=== PATIENT | female | born 1975 | race African-American/Black ===

== ENCOUNTER 2019-02-06 09:28 | Emergency (ER) | payer OTHER ==
[~2019-02-06] VITALS: Ht 160 cm; Wt 62.6 kg
[2019-02-06 09:40] VITALS: BP 108/64
[2019-02-06] MEDS ORDERED: HYDROcodone/APAP 10/325 MG 1 TAB TAB PO ONE (10:05)
[2019-02-06 10:54] VITALS: BP 111/65
== END 2019-02-06 10:55 | disposition home or self-care (01) ==
LOC: MED 09:28
DX: M06.861 Other specified rheumatoid arthritis, right knee (principal)
CPT/HCPCS: 99283

== ENCOUNTER 2019-02-12 15:28 | Emergency (ER) | payer OTHER ==
[~2019-02-12] VITALS: Ht 160 cm; Wt 62.6 kg
[2019-02-12 15:35] VITALS: BP 107/62
--- NOTE | 2019-02-12 15:41 | NUR ---
C/O R KNEE PAIN 02/28 FROM RHEUMATOID ARTHRITIS. +CMS. ALSO STATES GETTING OVER COLD SYMPTOMS. +PRODUCTIVE COUGH. INFLAMMED LARYNGEAL. VSS. [id number]. BED IS DOWN, LOCKED, BED RAIL X 1, ERMD TO SEE PT. REQUESTING REFILL FOR NORCO AND GABAPENTIN RX- NORCO, GABAPENTIN, PREDNISONE, ??
--- NOTE | 2019-02-12 15:57 | NUR ---
EMILE TINOCO AT [facility] Addendum: 02/12/19 at 1622 by [email or web address] AT CHAIR
[2019-02-12] MEDS ORDERED: HYDROcodone/APAP 5/325 MG 1 TAB TAB PO ONE (16:05)
[2019-02-12] MEDS ORDERED: DEXAMETHASONE 10 MG/ML VIAL IM ONE (16:05)
--- NOTE | 2019-02-12 16:15 | NUR ---
MEDICATIONS ADMINISTERED ORDERED. PT TOLERATED WELL
[2019-02-12 16:25] VITALS: BP 105/59
--- NOTE | 2019-02-12 16:25 | NUR ---
Patient discharged with v/s stable. Written and verbal after care instructions given and explained. Patient alert, oriented and verbalized understanding of instructions. Ambulatory with steady gait. All questions addressed prior to discharge. ID band removed. Patient advised to follow up with PMD. Rx of GABAPENTIN AND NAPROXEN given. Patient educated on indication of medication including possible reaction and side effects. Opportunity to ask questions provided and answered.
== END 2019-02-12 16:25 | disposition home or self-care (01) ==
LOC: MED 15:28
DX: M06.9 Rheumatoid arthritis, unspecified (principal); Z76.0 Encounter for issue of repeat prescription
CPT/HCPCS: 96372; 99283; J1100

== ENCOUNTER 2019-04-19 12:32 | Emergency (ER) | payer OTHER ==
[~2019-04-19] VITALS: Ht 160 cm; Wt 63.5 kg
[2019-04-19 12:45] VITALS: BP 114/69
--- NOTE | 2019-04-19 12:50 | NUR ---
PT TRIAGED, SENT BACK TO [facility]
--- NOTE | 2019-04-19 12:58 | NUR ---
44/F BIB SELF C/O EXACERBATION OF CHRONIC BL KNEE PAIN, X2 DAYS. DENIES TRAUMA/INJURY. HX STAGE 3 RHEUMATOID ARTHRITIS, ANEMIA, LATERAL RELEASE OF L KNEE (2008). PATIENT STATES PAIN OF 9/10 AT THIS TIME. PATIENT POSITIONED FOR COMFORT; HOB ELEVATED; BEDRAILS UP X1; BED DOWN. ER MD MADE AWARE OF PT STATUS.
[2019-04-19] MEDS ORDERED: HYDROcodone/APAP 7.5/325 MG 1 TAB PO ONE (15:20)
[2019-04-19] MEDS ORDERED: ONDANSETRON 4 MG ODT PO ONE (15:20)
[2019-04-19 15:54] VITALS: BP 118/72
== END 2019-04-19 15:54 | disposition home or self-care (01) ==
LOC: MED 12:32
DX: M25.562 Pain in left knee (principal); M25.561 Pain in right knee; Z76.0 Encounter for issue of repeat prescription
CPT/HCPCS: 99283; Q0162

== ENCOUNTER 2019-07-12 10:15 | Emergency (ER) | payer OTHER ==
[~2019-07-12] VITALS: Ht 162.6 cm; Wt 69.6 kg
[2019-07-12 10:35] VITALS: BP 115/73
--- NOTE | 2019-07-12 10:40 | NUR ---
PT GOING TO CT VIA [facility] WITH RN AND ON MONITOR
--- NOTE | 2019-07-12 10:42 | NUR ---
INFORMED DR. RESENDEZ OF L SIDED WEAKNESS, FACIAL DROOP AND CVA HISTORY.
--- NOTE | 2019-07-12 10:44 | NUR ---
DR. RESENDEZ EVALUATING PT AT BEDSIDE
--- NOTE | 2019-07-12 10:45 | NUR ---
accompanied pt to CT scan; VSS
--- NOTE | 2019-07-12 10:50 | NUR ---
PT BACK IN BED [address] SCAN; VSS
--- NOTE | 2019-07-12 11:02 | NUR ---
C/O L ARM NUMBNESS STARTING APPROX. 0930 AM. PT ALSO NOTED TO HAVE L SIDED FACIAL DROOP, & LLE WEAKNESS. PT AMBULATORY BUT WITH ATAXIC GAIT PER ELECTRIC MOTOR TESTER (UNSTEADY WITH R SIDED DRIFT). NO SLURRED SPEECH NOTED, PT A & O X4. PT REPORTS HX OF CVA IN AUGUST 2018. STATES BLURRY VISION TO LEFT EYE. NO SENSATION TO LEFT ARM. DECREASED SENSATION TO LEFT LEG. NO MOVEMENT NOTED TO LEFT ARM. SOME EFFORT AGAINST GRAVITY NOTED TO LEFT LEG. STATES MODERATE PAIN, CHRONIC TO BL KNEE (HX RA). HX: CVA, RA, LUPUS RX: UNOBTAINABLE
--- NOTE | 2019-07-12 11:02 | NUR ---
BRUISING NOTED TO BL ANTECUBITAL/UPPER ARM--PT STATES IT IS FROM IV STICKS FROM PREVIOUS MEDICAL VISITS.
--- NOTE | 2019-07-12 11:07 | NUR ---
DR. RESENDEZ @ BEDSIDE
--- NOTE | 2019-07-12 11:13 | NUR ---
PT STATES HEADACHE PAIN. DR. RESENDEZ @ BEDSIDE.
--- NOTE | 2019-07-12 11:31 | NUR ---
NUTRITION TEACHER @ BEDSIDE
--- NOTE | 2019-07-12 11:35 | NUR ---
Caroline maynard in [facility] - 07/12/19 at 1138 by CRISTA EMT @ BEDSIDE FOR MELANI
--- NOTE | 2019-07-12 11:40 | NUR ---
EMT @ BEDSIDE FOR EKG
[2019-07-12 11:50] LABS: BASOPHILS % (AUTO) 0.5 % (0.0-2.0); EOSINOPHILS # (AUTO) 0.1 K/uL (0-0.4); EOSINOPHILS % (AUTO) 0.9 % (0.0-4.0); HEMATOCRIT 37.2 % (36-48); HEMOGLOBIN 12.1 g/dL (12.0-16.0); LYMPHOCYTES # (AUTO) 1.5 K/uL (2.5-16.5); LYMPHOCYTES % (AUTO) 18.7 % (20.5-51.1); MEAN CORPUSCULAR HEMOGLOBIN 29 pg (27-31); MEAN CORPUSCULAR HGB CONC 33 g/dL (33-37); MONOCYTES # (AUTO) 0.4 K/uL (0.8-1.0); MONOCYTES % (AUTO) 5.2 % (1.7-9.3); NEUTROPHILS # (AUTO) 5.9 K/uL (1.8-7.7); NEUTROPHILS % (AUTO) 74.7 % (42.2-75.2); PLATELET COUNT (AUTO) 284 K/uL (140-450); RED BLOOD CELL COUNT(AUTO) 4.22 MIL/uL (4.20-5.40); RED CELL DISTRIBUTION WIDTH 15.1 % (11.6-13.7); WHITE BLOOD COUNT (AUTO) 7.9 K/uL (4.8-10.8)
[2019-07-12 12:09] LABS: PROTHROMBIN TIME 10.1 secs (10.8-13.4)
[2019-07-12 12:23] LABS: ALBUMIN 3.9 g/dL (3.4-5.0); ANION GAP 11.6 (8-16); CARBON DIOXIDE 27.4 mmol/L (21-32); CREATININE 0.6 mg/dL (0.6-1.3); TOTAL BILIRUBIN 0.2 mg/dL (0.0-1.0)
--- NOTE | 2019-07-12 12:40 | NUR ---
NOTIFIED DR RESENDEZ THAT PT IS ASKING FOR PAIN MED FOR HEADACHE AND BL KNEE PAIN.
[2019-07-12 12:41] LABS: APPEARANCE,URINE CLEAR (CLEAR); BILIRUBIN,URINE NEGATIVE (NEGATIVE); BLOOD, URINE NEGATIVE (NEGATIVE); COLOR,URINE YELLOW (YELLOW); LEUKOCYTE ESTERASE ,URINE NEGATIVE (NEGATIVE); NITRITE, URINE NEGATIVE (NEGATIVE); PH,URINE 5.5 (5.0-9.0); UGLUCOSE NEGATIVE (NEGATIVE)
[2019-07-12] MEDS ORDERED: KETOROLAC 15 MG/ML VIAL IVP ONE (12:45)
[2019-07-12 12:51] LABS: BARBITURATE, URINE NEG. ng/ml (NEG <=200); CANNABINOID, URINE NEG. ng/mL (NEG <=50); COCAINE, URINE NEG. ng/mL (NEG <=300); OPIATE, URINE NEG. ng/mL (NEG <=2000); PHENCYCLIDINE SCREEN,URINE NEG. ng/mL (NEG <=25)
--- NOTE | 2019-07-12 12:51 | NUR ---
DR RESENDEZ @ BEDSIDE
[2019-07-12 12:59] LABS: BENZODIAZEPINE, URINE NEG ng/mL (NEG <=200)
--- NOTE | 2019-07-12 13:02 | NUR ---
REPORT TO JOCELYNN GARCIA. TRANSFER OF CARE AT THIS TIME.
--- NOTE | 2019-07-12 13:30 | NUR ---
PT RESTING IN BED, PAIN RATED 9/10 IN BILAT KNEES AND HEADACHE. ERMD NOTIFIED
[2019-07-12] MEDS ORDERED: GABAPENTIN 300 MG CAP PO ONE (14:00)
[2019-07-12] MEDS ORDERED: traMADol 50 MG TAB PO ONE (14:00)
--- NOTE | 2019-07-12 14:13 | NUR ---
REQUESTED NEURO CONSULT
--- NOTE | 2019-07-12 14:20 | NUR ---
NEURO CONSULT TAKING PLACE AT BEDSIDE VIA [facility]
--- NOTE | 2019-07-12 14:21 | NUR ---
ERMD AT BEDSIDE
--- NOTE | 2019-07-12 14:34 | NUR ---
INSTRUCTED/ASSISTED PT TO EDGE OF BED, PT ABLE TO STAND UP WITH NO ASSISTANCE, ASSISTANCE REQUIRED TO TAKE STEPS FORWARD. PT REPORTS PAIN IN HER KNEES WHEN STANDING UP
--- NOTE | 2019-07-12 14:45 | NUR ---
1415----CALLED [facility]. SPOKE WITH MAYURI
--- NOTE | 2019-07-12 14:50 | NUR ---
1189---- DR. RESENDEZ ON THE PHONE WITH [facility]
--- NOTE | 2019-07-12 15:05 | NUR ---
2848-----CALL BACK FROM [facility] REGARDING PT TRANSFER. TO DR BYNUM
--- NOTE | 2019-07-12 15:50 | NUR ---
PATIENT STATES THAT PAIN IS NOT RESOLVED, HEAD PAIN IS 9/10. ERMD NOTIFIED
--- NOTE | 2019-07-12 16:09 | NUR ---
PT TRANSPORTED TO CT VIA [facility]
--- NOTE | 2019-07-12 16:46 | NUR ---
8313----CALLED [facility] TO CONFIRM TRANSFER. DR WILL CALL BACK IN 5 MIN
--- NOTE | 2019-07-12 17:00 | NUR ---
PT UNABLE TO AMBULATE TO BATHROOM, PLACED ON BEDPAN TO URINATE. WIPES LEFT WITH PT.
[2019-07-12] MEDS ORDERED: oxyCODONE/APAP 5/325 MG 1 TAB TAB PO ONE (17:40)
--- NOTE | 2019-07-12 17:49 | NUR ---
2589------CALLED [facility] FOR TRANSFER FROM [facility] TO [facility]. [facility] WILL TRANSFER PT BY ALS FOR CARDIAC MONITORING. ETA 90 MINUTES
--- NOTE | 2019-07-12 18:21 | NUR ---
REPORT CALLED TO SAMUEL CARR RN.
--- NOTE | 2019-07-12 18:31 | NUR ---
1831---------TRANSFER CENTER CALLED BACK FOR AN UPDATE ON [facility] ETA/TO CONFIRM TRANSPORT
--- NOTE | 2019-07-12 19:00 | NUR ---
PT AWARE OF PENDING TRANSFER; WAITING FOR [facility] FOR TRANSFER
--- NOTE | 2019-07-12 20:00 | NUR ---
PT'S TRANSFER PUSHED BACK BY [facility] UNAVAILABLE UNITS---PT NOTIFIED. WILL CONTINUE TO MONITOR FOR ANY CHANGES; PT REMAINS AWAKE ALERT SITTING UP IN [facility]
--- NOTE | 2019-07-13 | NUR ---
[facility] SPOKE WITH CHARGE CHU GARCIA---UPDATE REPORT GIVEN [facility] AT BEDSIDE NOW TO TRANSPORT
[2019-07-13 00:01] VITALS: BP 110/74
--- NOTE | 2019-07-13 00:02 | NUR ---
Patient to be transferred to [facility]. Is being transferred due to . Receiving facility has accepting physician and available space. ER physician has signed transfer form. Patient or responsible republican has agreed to transfer and signed form. Patient belongings inventoried and will be sent with patient. Copy of nursing notes, lab reports, EKG, Physicians Orders and X-rays to be sent with patient. Report called to at receiving facility. ambulance service has been called for transfer. ETA is .
== END 2019-07-13 00:02 | disposition short-term general hospital (02) ==
LOC: MED 10:15
DX: G43.109 Migraine with aura, not intractable, without status migrainosus (principal); Z86.79 Personal history of other diseases of the circulatory system
CPT/HCPCS: 36415; 70450; 70496; 71045; 80053; 80305; 81003; 81025; 84484; 85025; 85610; 85730; 93005; 96374; 99285; C1758; J1885; Q0092; Q9967

== ENCOUNTER 2019-12-27 09:02 | Emergency (ER) | payer OTHER ==
[~2019-12-27] VITALS: Ht 160 cm; Wt 62.7 kg
[2019-12-27 09:08] VITALS: BP 110/70
--- NOTE | 2019-12-27 09:15 | NUR ---
PT PRESENTS WITH LEFT SIDED WEAKNESS, LEFT FACIAL DROOP NOTED, UNABLE TO MOVE TONGUE TO LEFT, PUPILS PERRLA. NO SLURRED SPEECH. PT UNEQUAL STRENGTH ON UPPER AND LOWER EXTREMITIES, UNABLE TO HOLD FOR 10 SECONDS LUE AND UNABLE TO HOLD 5 SECONDS LLE. UNEQUAL MANAGER HOUSEKEEPING ON UPPER EXTREMITIES. PT WITH H/A 9/10 PAIN, FRONTAL/TEMPORAL AREA. LUNGS CLEAR BL; HR EVEN AND REGULAR; PT DENIES ANY FEVER, CP, SOB, COUGH, OR N/V/D AT THIS TIME; VSS; PATIENT POSITIONED FOR COMFORT; HOB ELEVATED; BEDRAILS UP X2; BED DOWN. ER MD MADE AWARE OF PT STATUS. LWKT: 0830 HOURS TODAY ; 45 MINUTES AGO.
--- NOTE | 2019-12-27 09:19 | NUR ---
Patient transferred to bed 3 via wheelchair by triage nurse. RN evaluating the patient at bedside.
--- NOTE | 2019-12-27 09:22 | NUR ---
Called [facility].
--- NOTE | 2019-12-27 09:23 | NUR ---
ACCOMPANIED PT TO CT SCAN WITH ENROBING MACHINE CORDER.
[2019-12-27] MEDS ORDERED: PROCHLORPERAZINE 10 MG/2 ML VIAL IVP ONE ×2 (09:30→11:05)
[2019-12-27] MEDS ORDERED: NACL 0.9% 1,000 ML IV ONE (09:30)
[2019-12-27] MEDS ORDERED: KETOROLAC 30 MG/ML VIAL IVP ONE (09:30)
[2019-12-27] MEDS ORDERED: diphenhydrAMINE 50 MG/ML VIAL IVP ONE ×2 (09:30→11:05)
--- NOTE | 2019-12-27 09:46 | NUR ---
PROFESSOR OF MECHANICAL ENGINEERING AT BEDSIDE FOR BLOOD DRAW
[2019-12-27 09:53] LABS: BASOPHILS % (AUTO) 0.2 % (0.0-2.0); HEMATOCRIT 29.3 % (36-48); HEMOGLOBIN 9.2 g/dL (12.0-16.0); LYMPHOCYTES # (AUTO) 1.8 K/uL (2.5-16.5); MEAN CORPUSCULAR HEMOGLOBIN 28 pg (27-31); MEAN CORPUSCULAR HGB CONC 32 g/dL (33-37); MEAN CORPUSCULAR VOLUME 87.3 fL (80-94); MONOCYTES # (AUTO) 1.7 K/uL (0.8-1.0); MONOCYTES % (AUTO) 10.3 % (1.7-9.3); NEUTROPHILS # (AUTO) 12.8 K/uL (1.8-7.7); NEUTROPHILS % (AUTO) 78.5 % (42.2-75.2); PLATELET COUNT (AUTO) 304 K/uL (140-450); RED BLOOD CELL COUNT(AUTO) 3.36 MIL/uL (4.20-5.40); RED CELL DISTRIBUTION WIDTH 17.5 % (11.6-13.7); WHITE BLOOD COUNT (AUTO) 16.3 K/uL (4.8-10.8)
--- NOTE | 2019-12-27 10:19 | NUR ---
Note aleyda in ED - 12/27/19 at 1241 by PHSCMMCA Patient referred to the following facilities: [facility], [place], [place] [facility] [place] [facility] No openings at this time. Will followup.
[2019-12-27 10:25] LABS: ALBUMIN 3.2 g/dL (3.4-5.0); ANION GAP 9.5 (8-16); CARBON DIOXIDE 27.9 mmol/L (21-32); CREATININE 0.7 mg/dL (0.6-1.3); POTASSIUM 3.4 mmol/L (3.5-5.1); PROTHROMBIN TIME 10.4 secs (10.8-13.4); TOTAL BILIRUBIN 0.1 mg/dL (0.0-1.0)
[2019-12-27 11:27] VITALS: BP 108/68
--- NOTE | 2019-12-27 11:27 | NUR ---
Note aleyda in ED - 12/27/19 at 1129 by OTONIEL Patient discharged with v/s stable. Written and verbal after care instructions given and explained. Patient verbalized understanding. Ambulatory with steady gait. All questions addressed prior to discharge. Advised to follow up with PMD.
== END 2019-12-27 11:27 | disposition home or self-care (01) ==
LOC: MED 09:02
DX: G43.109 Migraine with aura, not intractable, without status migrainosus (principal)
CPT/HCPCS: 36415; 70450; 71045; 80053; 84484; 85025; 85610; 85730; 86886; 86900; 86901; 96361; 96374; 96375; 96376; 99285; J0780; J1200; J1885; J7030; Q0092

== ENCOUNTER 2020-01-07 09:23 | Emergency (ER) | payer OTHER ==
[~2020-01-07] VITALS: Ht 160 cm; Wt 65.8 kg
[2020-01-07 09:27] VITALS: BP 122/72
--- NOTE | 2020-01-07 09:33 | NUR ---
PATIENT AMBULATED TO BED 3.
--- NOTE | 2020-01-07 09:45 | NUR ---
DR CANTU AT BEDSIDE EVALUATING PT.
[2020-01-07] MEDS ORDERED: diphenhydrAMINE 50 MG/ML VIAL IVP ONE ×2 (09:55→10:45)
[2020-01-07] MEDS ORDERED: KETOROLAC 15 MG/ML VIAL IVP ONE ×2 (09:55→10:45)
[2020-01-07] MEDS ORDERED: PROCHLORPERAZINE 10 MG/2 ML VIAL IVP ONE ×2 (09:55→10:45)
--- NOTE | 2020-01-07 11:32 | NUR ---
PT COMFORTABLE IN BED SIDE RAILS UP X1 AND LOCK AT LOWEST POSITION.
--- NOTE | 2020-01-07 11:44 | NUR ---
DR CANTU AT BEDSIDE REEVALUATING PT.
[2020-01-07] MEDS ORDERED: BACITRACIN OINT 500 UNITS/GM PKT TP ONE (11:50)
--- NOTE | 2020-01-07 11:55 | NUR ---
gave bacitracin ointment ,pt in a hurry to catch her uber, instructed pt how to apply ointment.
[2020-01-07 11:59] VITALS: BP 122/72
--- NOTE | 2020-01-07 12:00 | NUR ---
Patient discharged with v/s stable. Written and verbal after care instructions given and explained regarding migraine headache. Patient alert, oriented and verbalized understanding of instructions. Ambulatory with steady gait. All questions addressed prior to discharge. ID band removed. Patient advised to follow up with PMD. Rx of bacitracin given. Patient educated on indication of medication including possible reaction and side effects. Opportunity to ask questions provided and answered.
== END 2020-01-07 12:00 | disposition home or self-care (01) ==
LOC: MED 09:23
DX: T21.02XA Burn of unspecified degree of abdominal wall, initial encounter (principal); G43.909 Migraine, unspecified, not intractable, without status migrainosus; Z86.73 Personal history of transient ischemic attack (TIA), and cerebral infarction without residual deficits; Z98.890 Other specified postprocedural states; X10.2XXA Contact with fats and cooking oils, initial encounter; Y93.89 Activity, other specified; Y92.89 Other specified places as the place of occurrence of the external cause; Y99.8 Other external cause status
CPT/HCPCS: 96374; 96375; 96376; 99284; J0780; J1200; J1885

== ENCOUNTER 2020-01-18 13:31 | Emergency (ER) | payer OTHER ==
[~2020-01-18] VITALS: Ht 160 cm; Wt 65.8 kg
[2020-01-18 13:34] VITALS: BP 115/83
--- NOTE | 2020-01-18 13:40 | NUR ---
Patient ambulated to bed 4. RN evaluating patient at bedside.
--- NOTE | 2020-01-18 13:41 | NUR ---
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 Pt unable to move left arm, severe weakness in left leg. Speech clear, able to speak in full sentences. No facial droop noted. 9/10 aching pain to head. States she has hx of complicated migraines in past. Awake and alert. positioned for comfort. VSS
--- NOTE | 2020-01-18 13:42 | NUR ---
Patient being evaluated by Dr. Mendosa at bedside.
[2020-01-18] MEDS ORDERED: NACL 0.9% 1,000 ML IV ONE (13:54)
[2020-01-18] MEDS ORDERED: diphenhydrAMINE 50 MG/ML VIAL IVP ONE (13:55)
[2020-01-18] MEDS ORDERED: PROCHLORPERAZINE 10 MG/2 ML VIAL IVP ONE (13:55)
[2020-01-18] MEDS ORDERED: KETOROLAC 30 MG/ML VIAL IVP ONE (13:55)
--- NOTE | 2020-01-18 14:26 | NUR ---
Pt ambulated to restroom with steady gait. Urine collected at this time
--- NOTE | 2020-01-18 14:44 | NUR ---
States decrease in pain, regained motor function in left extremities. VSS. Will continue to monitor
--- NOTE | 2020-01-18 14:49 | NUR ---
IV discontinued, 2x2 gauze placed to IV site.
[2020-01-18 14:50] VITALS: BP 118/79
--- NOTE | 2020-01-18 14:50 | NUR ---
Patient discharged with v/s stable. Written and verbal after care instructions given and explained. Patient alert, oriented and verbalized understanding of instructions. Ambulatory with steady gait. All questions addressed prior to discharge. ID band removed. Patient advised to follow up with PMD. Rx of Gabapentin 600mg given. Patient educated on indication of medication including possible reaction and side effects. Opportunity to ask questions provided and answered.
== END 2020-01-18 14:50 | disposition home or self-care (01) ==
LOC: MED 13:31
DX: G43.909 Migraine, unspecified, not intractable, without status migrainosus (principal); Z86.73 Personal history of transient ischemic attack (TIA), and cerebral infarction without residual deficits
CPT/HCPCS: 96361; 96374; 96375; 99284; J0780; J1200; J1885; J7030

== ENCOUNTER 2020-02-27 11:27 | Emergency (ER) | payer OTHER ==
[~2020-02-27] VITALS: Ht 160 cm; Wt 62.6 kg
[2020-02-27 11:29] VITALS: BP 109/61
[2020-02-27] MEDS ORDERED: PROCHLORPERAZINE 10 MG/2 ML VIAL IVP ONE (11:45)
[2020-02-27] MEDS ORDERED: NACL 0.9% 1,000 ML IV ONE ×2 (11:45→14:35)
[2020-02-27] MEDS ORDERED: diphenhydrAMINE 50 MG/ML VIAL IVP ONE (11:45)
[2020-02-27] MEDS ORDERED: KETOROLAC 30 MG/ML VIAL IM/IVP ONE ×2 (11:45→14:20)
[2020-02-27 15:03] VITALS: BP 114/69
== END 2020-02-27 15:04 | disposition home or self-care (01) ==
LOC: MED 11:27
DX: G89.29 Other chronic pain (principal); R51.9 Headache, unspecified; G43.909 Migraine, unspecified, not intractable, without status migrainosus; Z86.73 Personal history of transient ischemic attack (TIA), and cerebral infarction without residual deficits
CPT/HCPCS: 96361; 96374; 96375; 99284; J0780; J1200; J1885; J7030

== ENCOUNTER 2020-04-05 18:05 | Emergency (ER) | payer OTHER ==
[~2020-04-05] VITALS: Ht 162.6 cm; Wt 68.9 kg
[2020-04-05 18:10] VITALS: BP 119/67
[2020-04-05] MEDS ORDERED: diphenhydrAMINE 50 MG/ML VIAL IVP ONE ×2 (18:30→21:30)
[2020-04-05] MEDS ORDERED: KETOROLAC 30 MG/ML VIAL IVP ONE (18:30)
[2020-04-05] MEDS ORDERED: PROCHLORPERAZINE 10 MG/2 ML VIAL IVP ONE (18:30)
[2020-04-05] MEDS ORDERED: NACL 0.9% 1,000 ML IV ONE ×2 (18:30→21:30)
--- NOTE | 2020-04-05 18:51 | NUR ---
ACCOMPANIED PT TO CT SCAN YADI ALANIS.
--- NOTE | 2020-04-05 19:19 | NUR ---
REPORT RECEIVED FROM RADHA GARCIA FOR CONTINUATION OF CARE.
--- NOTE | 2020-04-05 19:19 | NUR ---
Pt report given to RADHA Freire. Transfer of care at this time.
--- NOTE | 2020-04-05 20:38 | NUR ---
PT STATES HER HEAD HURT 12/29 AT THIS TIME. ERMD MADE AWARE OF PT STATUS.
[2020-04-05] MEDS ORDERED: HYDROcodone/APAP 10/325 MG 1 TAB TAB PO ONE (20:50)
[2020-04-05] MEDS ORDERED: KETOROLAC 15 MG/ML VIAL IVP ONE (21:30)
--- NOTE | 2020-04-05 22:09 | NUR ---
pt states she is feeling much better , rates pain 3/10. Pt states she needs to be discharged at this time because her ride is already here and she doesn't want them to leave her.
--- NOTE | 2020-04-05 22:10 | NUR ---
IV removed, catheter intact and site benign. Applied folded 4x4 gauze and tape to stop bleeding.
[2020-04-05 22:12] VITALS: BP 111/76
--- NOTE | 2020-04-05 22:12 | NUR ---
Patient discharged with v/s stable. Written and verbal after care instructions given and explained. Patient verbalized understanding. Ambulatory with steady gait. All questions addressed prior to discharge. Advised to follow up with PMD.
== END 2020-04-05 22:12 | disposition home or self-care (01) ==
LOC: MED 18:05
DX: G43.909 Migraine, unspecified, not intractable, without status migrainosus (principal); Z86.73 Personal history of transient ischemic attack (TIA), and cerebral infarction without residual deficits
CPT/HCPCS: 70450; 96361; 96374; 96375; 96376; 99284; J0780; J1200; J1885; J7030

== ENCOUNTER 2020-05-01 18:35 | Emergency (ER) | payer OTHER ==
[~2020-05-01] VITALS: Ht 160 cm; Wt 69.4 kg
[2020-05-01 18:53] VITALS: BP 104/70
[2020-05-01] MEDS ORDERED: NACL 0.9% 1,000 ML IV ONE (19:05)
[2020-05-01] MEDS ORDERED: KETOROLAC 30 MG/ML VIAL IVP ONE (19:05)
[2020-05-01] MEDS ORDERED: diphenhydrAMINE 50 MG/ML VIAL IVP ONE ×2 (19:05→22:45)
[2020-05-01] MEDS ORDERED: PROCHLORPERAZINE 10 MG/2 ML VIAL IVP ONE (19:05)
[2020-05-01 19:47] LABS: BASOPHILS # (AUTO) 0.1 K/uL (0.00-0.22); BASOPHILS % (AUTO) 0.9 % (0.0-2.0); EOSINOPHILS # (AUTO) 0.2 K/uL (0-0.4); EOSINOPHILS % (AUTO) 3.4 % (0.0-4.0); HEMATOCRIT 30.5 % (36-48); HEMOGLOBIN 9.3 g/dL (12.0-16.0); LYMPHOCYTES # (AUTO) 1.4 K/uL (2.5-16.5); LYMPHOCYTES % (AUTO) 23.3 % (20.5-51.1); MEAN CORPUSCULAR HEMOGLOBIN 24 pg (27-31); MEAN CORPUSCULAR HGB CONC 31 g/dL (33-37); MEAN CORPUSCULAR VOLUME 78.4 fL (80-94); MONOCYTES # (AUTO) 0.5 K/uL (0.8-1.0); MONOCYTES % (AUTO) 8.7 % (1.7-9.3); NEUTROPHILS # (AUTO) 3.9 K/uL (1.8-7.7); NEUTROPHILS % (AUTO) 63.7 % (42.2-75.2); PLATELET COUNT (AUTO) 297 K/uL (140-450); RED BLOOD CELL COUNT(AUTO) 3.89 MIL/uL (4.20-5.40); RED CELL DISTRIBUTION WIDTH 20.3 % (11.6-13.7); WHITE BLOOD COUNT (AUTO) 6.2 K/uL (4.8-10.8)
[2020-05-01 19:53] LABS: CARBON DIOXIDE 23.3 mmol/L (21-32); CREATININE 0.8 mg/dL (0.6-1.3); POTASSIUM 4.3 mmol/L (3.5-5.1)
[2020-05-01 19:58] LABS: ALBUMIN 3.6 g/dL (3.4-5.0); TOTAL BILIRUBIN 0.1 mg/dL (0.0-1.0)
[2020-05-01] MEDS ORDERED: KETOROLAC 30 MG/ML VIAL ONE (20:28)
[2020-05-01] MEDS ORDERED: diphenhydrAMINE 50 MG/ML VIAL ONE (20:28)
[2020-05-01] MEDS ORDERED: PROCHLORPERAZINE 10 MG/2 ML VIAL ONE (20:28)
--- NOTE | 2020-05-01 21:00 | NUR ---
Dr. Little with patient for MSE.
[2020-05-01 23:23] VITALS: BP 105/72
--- NOTE | 2020-05-02 00:04 | NUR ---
Patient discharged with v/s stable. Written and verbal after care instructions given and explained. Patient alert, oriented and verbalized understanding of instructions. with . All questions addressed prior to discharge. ID band removed. Patient advised to follow up with PMD. Opportunity to ask questions provided and answered.
--- NOTE | 2020-05-02 03:38 | NUR ---
Note aleyda in EDM - 05/02/20 at 0339 by [facility] Patient discharged with v/s stable. Written and verbal after care instructions given and explained. Patient alert, oriented and verbalized understanding of instructions. with . All questions addressed prior to discharge. ID band removed. Patient advised to follow up with PMD. Opportunity to ask questions provided and answered.
== END 2020-05-02 00:09 | disposition home or self-care (01) ==
LOC: MED 18:35
DX: G43.409 Hemiplegic migraine, not intractable, without status migrainosus (principal); I63.9 Cerebral infarction, unspecified
CPT/HCPCS: 36415; 80048; 80076; 85025; 96361; 96374; 96375; 96376; 99284; J0780; J1200; J1885; J7030

== ENCOUNTER 2021-09-03 07:14 | Emergency (ER) | payer OTHER ==
[~2021-09-03] VITALS: Ht 160 cm; Wt 52.2 kg
[2021-09-03 07:19] VITALS: BP 115/67
--- NOTE | 2021-09-03 07:23 | NUR ---
PATIENT AMBULATED TO BED 4, STEADY GAIT
[2021-09-03] MEDS ORDERED: KETOROLAC 60 MG/2 ML VIAL IM ONE (07:25)
--- NOTE | 2021-09-03 07:27 | NUR ---
DR ALANIS AT BEDSIDE
[2021-09-03] MEDS ORDERED: TRAM50TA1 PO (07:35)
[2021-09-03] MEDS ORDERED: GABA300C PO (07:35)
[2021-09-03] MEDS ORDERED: GABA400C PO (07:39)
[2021-09-03 07:45] VITALS: BP 115/67
--- NOTE | 2021-09-03 07:45 | NUR ---
Patient discharged with v/s stable. Written and verbal after care instructions given and explained. Patient alert, oriented and verbalized understanding of instructions. Ambulatory with steady gait. All questions addressed prior to discharge. ID band removed. Patient advised to follow up with PMD. Rx of GABAPENTIN AND TRAMADOL given. Patient educated on indication of medication including possible reaction and side effects. Opportunity to ask questions provided and answered.
== END 2021-09-03 07:45 | disposition home or self-care (01) ==
LOC: MED 07:14
DX: G89.29 Other chronic pain (principal); M25.561 Pain in right knee; M25.562 Pain in left knee; Z86.73 Personal history of transient ischemic attack (TIA), and cerebral infarction without residual deficits; Z98.890 Other specified postprocedural states
CPT/HCPCS: 96372; 99283; J1885

== ENCOUNTER 2021-10-16 08:52 | Emergency (ER) | payer OTHER ==
[~2021-10-16] VITALS: Ht 157.5 cm; Wt 51.8 kg
[~2021-10-16 08:52] MED LIST: GABA400C PO; TRAM50TA1 PO
[2021-10-16 09:07] VITALS: BP 104/65
--- NOTE | 2021-10-16 09:12 | NUR ---
46Y FEMALE BIB SELF DUE TO L KNEE PAIN X4 DAYS. PT DENIES ANY TRAUMA AND STATED THE PAIN IS A FLARE-UP DUE TO HER RA. L KNEE SWOLLEN AT THIS TIME. PT STATED PAIN 8/10 AND ACHE LIKE PAIN. PMH: RA RAND
--- NOTE | 2021-10-16 09:56 | NUR ---
DR. ALANIS BEDSIDE EVALUATING PT
[2021-10-16] MEDS ORDERED: MORPHINE SULFATE 4 MG/ML SYR IM ONE (10:00)
[2021-10-16] MEDS ORDERED: ACET-8386 PO (10:14)
[2021-10-16] MEDS ORDERED: GABA400C PO (10:14)
--- NOTE | 2021-10-16 10:20 | NUR ---
Patient discharged with v/s stable. Written and verbal after care instructions given and explained. Patient alert, oriented and verbalized understanding of instructions. Ambulatory with steady gait. All questions addressed prior to discharge. ID band removed. Patient advised to follow up with PMD. Rx of norco, neurontin given. Patient educated on indication of medication including possible reaction and side effects. Opportunity to ask questions provided and answered.
[2021-10-16 10:26] VITALS: BP 110/68
== END 2021-10-16 10:20 | disposition home or self-care (01) ==
LOC: MED 08:52
DX: M25.561 Pain in right knee (principal); M25.562 Pain in left knee; M06.9 Rheumatoid arthritis, unspecified; Z98.890 Other specified postprocedural states; Z79.899 Other long term (current) drug therapy; Z79.891 Long term (current) use of opiate analgesic
CPT/HCPCS: 81002; 81025; 96372; 99283; J2270

== ENCOUNTER 2021-11-18 11:36 | Emergency (ER) | payer OTHER ==
[~2021-11-18] VITALS: Ht 160 cm; Wt 51.3 kg
[~2021-11-18 11:36] MED LIST changes: +ACET-8386 PO
[2021-11-18 11:52] VITALS: BP 115/77
[2021-11-18] MEDS ORDERED: KETOROLAC 60 MG/2 ML VIAL IM ONE (12:00)
--- NOTE | 2021-11-18 12:32 | NUR ---
46 Y/O FEMALE BIB SELF WITH C/O BILATERAL KNEE PAIN. PATIENT HAS SWELLING AND TENDERNESS TO BILATERAL KNEES. PATIENT HAS 8/10 PAIN LEVEL. MEDICAL HISTORY: RA AND ANEMIA NKDA
[2021-11-18] MEDS ORDERED: GABA400C PO (13:43)
[2021-11-18 13:55] VITALS: BP 111/76
--- NOTE | 2021-11-18 13:55 | NUR ---
Patient discharged with v/s stable. Written and verbal after care instructions given and explained. Patient alert, oriented and verbalized understanding of instructions. Ambulatory with steady gait. All questions addressed prior to discharge. ID band removed. Patient advised to follow up with PMD. Rx of GABAPENTIN given. Patient educated on indication of medication including possible reaction and side effects. Opportunity to ask questions provided and answered.
== END 2021-11-18 13:55 | disposition home or self-care (01) ==
LOC: MED 11:36
DX: G89.29 Other chronic pain (principal); M25.561 Pain in right knee; M25.562 Pain in left knee; Z76.0 Encounter for issue of repeat prescription; Z79.899 Other long term (current) drug therapy
CPT/HCPCS: 96372; 99283; J1885

== ENCOUNTER 2021-12-22 11:25 | Emergency (ER) | payer OTHER ==
[~2021-12-22] VITALS: Ht 160 cm; Wt 52.3 kg
[2021-12-22 11:40] VITALS: BP 105/63
--- NOTE | 2021-12-22 11:42 | NUR ---
PT SENT TO LOBBY TO WAIT.
[2021-12-22] MEDS ORDERED: GABA400C PO (12:28)
--- NOTE | 2021-12-22 12:42 | NUR ---
Patient discharged with v/s stable. Written and verbal after care instructions given and explained. Patient alert, oriented and verbalized understanding of instructions. Ambulatory with steady gait. All questions addressed prior to discharge. ID band removed. Patient advised to follow up with PMD. Rx of Gabapentin given. Patient educated on indication of medication including possible reaction and side effects. Opportunity to ask questions provided and answered.
--- NOTE | 2021-12-22 12:42 | NUR ---
NO NURSING INTERVENTIONS PERFORMED.
== END 2021-12-22 12:42 | disposition home or self-care (01) ==
LOC: MED 11:25
DX: G89.29 Other chronic pain (principal); M25.561 Pain in right knee; M25.562 Pain in left knee; Z76.0 Encounter for issue of repeat prescription; Z79.899 Other long term (current) drug therapy
CPT/HCPCS: 99283

== ENCOUNTER 2022-01-03 08:38 | Emergency (ER) | payer OTHER ==
[~2022-01-03] VITALS: Ht 160 cm; Wt 50.0 kg
[2022-01-03 09:01] VITALS: BP 103/67
--- NOTE | 2022-01-03 09:06 | NUR ---
Pt ambulated to chair A.
[2022-01-03] MEDS ORDERED: GABA400C PO (09:52)
--- NOTE | 2022-01-03 10:07 | NUR ---
46Y.O. F CAME IN TO CHANGE DOSE ON MEDS SHE HAS FOR HER RA IN HER KNEES, PT WAS TOLD TO COMEBACK IF HER PAIN GOT WORSE. PT IS 8/10 PAIN BECAUSE ITS THE MORNING ACCORDING TO HER. SHE HAS AN APPOINTMENT WITH PCP NEXT MONTH. A&OX4, SKIN INTACT, VITALS WNL AND STEADY GAIT. NKA HX: SLIGHT LEVELS OF LUPUS, ANEMIC, RA
[2022-01-03 10:08] VITALS: BP 103/67
--- NOTE | 2022-01-03 10:08 | NUR ---
Patient discharged with v/s stable. Written and verbal after care instructions given and explained. Patient alert, oriented and verbalized understanding of instructions. Ambulatory with steady gait. All questions addressed prior to discharge. ID band removed. Patient advised to follow up with PMD. Rx of Neurontin given. Patient educated on indication of medication including possible reaction and side effects. Opportunity to ask questions provided and answered.
== END 2022-01-03 10:08 | disposition home or self-care (01) ==
LOC: MED 08:38
DX: M06.9 Rheumatoid arthritis, unspecified (principal); Z76.0 Encounter for issue of repeat prescription
CPT/HCPCS: 99283

== ENCOUNTER 2022-02-05 11:44 | Emergency (ER) | payer OTHER ==
[~2022-02-05] VITALS: Ht 154.9 cm; Wt 61.2 kg
[2022-02-05 11:51] VITALS: BP 121/71
[2022-02-05] MEDS ORDERED: KETOROLAC 60 MG/2 ML VIAL IM ONE ×2 (11:55→11:58)
--- NOTE | 2022-02-05 12:00 | NUR ---
47 y/o female, pt presents to the ed with c/o bl knee pain, pt states she has chronic pain, but has a flare up this morning. states no relief with prednisone po at home. a&ox4, ambulates with steady gait. denies n/v/d, cough, chills, fever, sob, or cp. pmh: ra nka med: prednisone
--- NOTE | 2022-02-05 12:02 | NUR ---
pt requesting stronger pain medication, states torodol never works, ermd made aware
[2022-02-05] MEDS ORDERED: MORPHINE SULFATE 4 MG/ML SYR IM ONE (12:40)
[2022-02-05] MEDS ORDERED: GABA800T6 PO (12:44)
--- NOTE | 2022-02-05 12:58 | NUR ---
Patient discharged with v/s stable. Written and verbal after care instructions given and explained. Patient alert, oriented and verbalized understanding of instructions. Ambulatory with steady gait. All questions addressed prior to discharge. ID band removed. Patient advised to follow up with PMD. Rx of gabapentin given. Patient educated on indication of medication including possible reaction and side effects. Opportunity to ask questions provided and answered.
== END 2022-02-05 12:57 | disposition home or self-care (01) ==
LOC: MED 11:44
DX: M25.561 Pain in right knee (principal); M25.562 Pain in left knee; G89.29 Other chronic pain; Z79.899 Other long term (current) drug therapy
CPT/HCPCS: 96372; 99284; J1885; J2270

== ENCOUNTER 2022-03-10 09:55 | Emergency (ER) | payer OTHER ==
[~2022-03-10] VITALS: Ht 160 cm; Wt 53.5 kg
[~2022-03-10 09:55] MED LIST changes: +GABA800T6 PO
[2022-03-10 10:17] VITALS: BP 127/85
--- NOTE | 2022-03-10 10:25 | NUR ---
47/F C/O B/L KNEE PAIN ONSET 2 DAYS. PT STATES RA NOUT OF GABAPENTIN PX 4DAYS AGO. DENIES FALL OR INJURY. AMBULATORY, VITALS STABLE. AAO4 PMH: RA, LUPUS, ANEMIA
[2022-03-10] MEDS ORDERED: GABAPENTIN 300 MG CAP PO ONE ×2 (11:30→11:45)
--- NOTE | 2022-03-10 11:30 | NUR ---
PT STATES USUALLY TAKES GABAPENTIN 800MG PO. DR ALSTON NOTIFIED. PER MD VERBAL ORDER, ADMINISTER GABAPENTIN 800MG PO ONCE NOW
--- NOTE | 2022-03-10 11:44 | NUR ---
PER DR ALSTON VERBAL ORDER, CHANGE GABAPENTIN TO 600MG PO
[2022-03-10] MEDS ORDERED: GABA800T6 PO (12:16)
--- NOTE | 2022-03-10 12:30 | NUR ---
Patient discharged with v/s stable. Written and verbal after care instructions ABOUT CHRONIC KNEE PAIN given and explained. Patient alert, oriented and verbalized understanding of instructions. Ambulatory with steady gait. All questions addressed prior to discharge. ID band removed. Patient advised to follow up with PMD. Rx of GABAPENTIN given. Patient educated on indication of medication including possible reaction and side effects. Opportunity to ask questions provided and answered.
== END 2022-03-10 12:30 | disposition home or self-care (01) ==
LOC: MED 09:55
DX: M25.562 Pain in left knee (principal); M25.561 Pain in right knee
CPT/HCPCS: 81002; 81025; 99283

== ENCOUNTER 2022-05-01 09:41 | Emergency (ER) | payer OTHER ==
[~2022-05-01] VITALS: Ht 160 cm; Wt 52.6 kg
[~2022-05-01 09:41] MED LIST changes: +TRAM-748 PO; -TRAM50TA1 PO
[2022-05-01 09:47] VITALS: BP 120/74
--- NOTE | 2022-05-01 09:54 | NUR ---
PT AMB TO BED 7.
--- NOTE | 2022-05-01 10:15 | NUR ---
Dr. Stephens evaluating patient at bedside.
--- NOTE | 2022-05-01 10:17 | NUR ---
47 y/o female bib self with c/o knee and shoulder pain x 3 days. Per patient, she gets RA flare up "when she works too much." Per patient she takes Gabapentin for RA flare up. Denies trauma or injury. Medical History: RA, Lupus NKDA
[2022-05-01] MEDS ORDERED: MORPHINE SULFATE 4 MG/ML SYR IM ONE (10:20)
[2022-05-01] MEDS ORDERED: HYDR-5080 PO (10:35)
[2022-05-01] MEDS ORDERED: GABA400C PO (10:35)
[2022-05-01 11:00] VITALS: BP 100/60
--- NOTE | 2022-05-01 11:00 | NUR ---
Patient discharged with v/s stable. Written and verbal after care instructions given. Patient alert, oriented and verbalized understanding of instructions. Ambulatory with steady gait. All questions addressed prior to discharge. ID band removed. Patient advised to follow up with PMD. Rx of Gabapentin and Hydrocodone-Acetaminophen given. Opportunity to ask questions provided and answered.
--- NOTE | 2022-05-01 11:01 | NUR ---
The patient's care was reviewed and supervised by Katalina Osborn, RN, RN.
== END 2022-05-01 11:00 | disposition home or self-care (01) ==
LOC: MED 09:41
DX: M06.862 Other specified rheumatoid arthritis, left knee (principal); M06.861 Other specified rheumatoid arthritis, right knee; M06.812 Other specified rheumatoid arthritis, left shoulder; M06.811 Other specified rheumatoid arthritis, right shoulder
CPT/HCPCS: 81025; 96372; 99283; J2270

== ENCOUNTER 2022-06-21 16:48 | Emergency (ER) | payer OTHER ==
[~2022-06-21] VITALS: Ht 160 cm; Wt 52.6 kg
[~2022-06-21 16:48] MED LIST changes: -ACET-8386 PO; +ACET-8905 PO; +GABA300C PO; +HYDR-5080 PO
[2022-06-21 17:04] VITALS: BP 114/74
--- NOTE | 2022-06-21 17:11 | NUR ---
PT AMB TO BED 2.
[2022-06-21] MEDS ORDERED: HYDROcodone/APAP 5/325 MG 1 TAB TAB PO ONE (17:30)
[2022-06-21] MEDS ORDERED: TRAM-748 PO (17:33)
[2022-06-21] MEDS ORDERED: GABA400C PO (17:33)
[2022-06-21 18:02] VITALS: BP 114/74
--- NOTE | 2022-06-21 18:03 | NUR ---
PT LEFT WITHOUT DX PAPERWORK
== END 2022-06-21 18:02 | disposition home or self-care (01) ==
LOC: MED 16:48
DX: M06.862 Other specified rheumatoid arthritis, left knee (principal); M06.811 Other specified rheumatoid arthritis, right shoulder; Z76.0 Encounter for issue of repeat prescription; Z79.899 Other long term (current) drug therapy
CPT/HCPCS: 99281

== ENCOUNTER 2022-07-25 13:21 | Emergency (ER) | payer OTHER ==
[~2022-07-25] VITALS: Ht 160 cm; Wt 52.6 kg
[2022-07-25 13:33] VITALS: BP 116/64
--- NOTE | 2022-07-25 14:00 | NUR ---
CALLED NO RESPONSE
--- NOTE | 2022-07-25 14:15 | NUR ---
CALLED NO RESPONSE
--- NOTE | 2022-07-25 14:27 | NUR ---
PATIENT LEFT WITHOUT BEING SEEN BY DR. CANTU. NO FURTHER CARE PROVIDED FOR PATIENT.
== END 2022-07-25 14:00 | disposition left against medical advice (07) ==
LOC: MED 13:21
DX: M25.561 Pain in right knee (principal); M25.562 Pain in left knee; Z53.21 Procedure and treatment not carried out due to patient leaving prior to being seen by health care provider
CPT/HCPCS: 99281

== ENCOUNTER 2022-07-27 12:56 | Emergency (ER) | payer OTHER ==
[~2022-07-27] VITALS: Ht 162.6 cm; Wt 49.9 kg
[2022-07-27 13:06] VITALS: BP 113/54
[2022-07-27] MEDS ORDERED: HYDROcodone/APAP 5/325 MG 1 TAB TAB PO ONE (15:00)
[2022-07-27] MEDS ORDERED: GABA400C PO (15:11)
== END 2022-07-27 15:55 | disposition home or self-care (01) ==
LOC: MED 12:56
DX: M06.9 Rheumatoid arthritis, unspecified (principal); Z76.0 Encounter for issue of repeat prescription; Z79.899 Other long term (current) drug therapy; Z79.891 Long term (current) use of opiate analgesic
CPT/HCPCS: 99283

== ENCOUNTER 2022-09-17 18:15 | Emergency (ER) | payer OTHER ==
[~2022-09-17] VITALS: Ht 160 cm; Wt 56.2 kg
[2022-09-17 18:47] VITALS: BP 125/64
--- NOTE | 2022-09-17 18:56 | NUR ---
PT TO BED 08
--- NOTE | 2022-09-17 18:56 | NUR ---
Caroline maynard in [facility] - 09/17/22 at 1856 by MISAEL Patient ambulated to bed 8.
[2022-09-17] MEDS ORDERED: HYDROcodone/APAP 10/325 MG 1 TAB TAB PO ONE (19:00)
--- NOTE | 2022-09-17 19:00 | NUR ---
DR SUTTON AT BEDSIDE FOR EVAL
--- NOTE | 2022-09-17 19:00 | NUR ---
47 YO FEMALE BIBS PRESENT TO THE ER WITH KNEE PAIN. STATES ITS A FLARE UP OF RA. STATES 8/10 PAIN. ALSO C/O LEFT SHOULD OSTEOARTHRITIS PAIN. FLARE UP STARTED 2 DAYS AGO, BUT TODAY IS WORSE. PMH: ANEMIA ALLERGIES: AVACADO.
--- NOTE | 2022-09-17 19:09 | NUR ---
Patient being evaluated by physician at bedside.
[2022-09-17] MEDS ORDERED: GABA-640 PO (19:10)
== END 2022-09-17 19:21 | disposition home or self-care (01) ==
LOC: MED 18:15
DX: M06.861 Other specified rheumatoid arthritis, right knee (principal); M06.862 Other specified rheumatoid arthritis, left knee; M06.811 Other specified rheumatoid arthritis, right shoulder; M06.812 Other specified rheumatoid arthritis, left shoulder; M32.9 Systemic lupus erythematosus, unspecified; D64.9 Anemia, unspecified; Z79.899 Other long term (current) drug therapy
CPT/HCPCS: 99283

== ENCOUNTER 2022-10-17 01:05 | Emergency (ER) | payer OTHER ==
[~2022-10-17] VITALS: Ht 160 cm; Wt 54.9 kg
[~2022-10-17 01:05] MED LIST changes: +GABA-640 PO
[2022-10-17 01:16] VITALS: BP 101/69; PULSE 77; RESP 18; TEMP 98.9; O2SAT 98
--- NOTE | 2022-10-17 01:22 | NUR ---
INITIATED CODE BRAIN PER DR. GONZÁLES. RADIOLGY MADE AWARE
--- NOTE | 2022-10-17 01:22 | NUR ---
Dr. Gonsales examining patient.
--- NOTE | 2022-10-17 01:30 | NUR ---
Patient taken to CT scan with nurse.
[2022-10-17 02:06] LABS: BASOPHILS % (AUTO) 0.4 % (0.0-2.0); EOSINOPHILS % (AUTO) 0.1 % (0.0-4.0); HEMATOCRIT 36.5 % (36-48); HEMOGLOBIN 11.8 g/dL (12.0-16.0); LYMPHOCYTES # (AUTO) 0.3 K/uL (2.5-16.5); LYMPHOCYTES % (AUTO) 5.5 % (20.5-51.1); MEAN CORPUSCULAR HEMOGLOBIN 30 pg (27-31); MEAN CORPUSCULAR HGB CONC 32 g/dL (33-37); MEAN CORPUSCULAR VOLUME 92.9 fL (80-94); MONOCYTES % (AUTO) 0.4 % (1.7-9.3); NEUTROPHILS # (AUTO) 5.3 K/uL (1.8-7.7); NEUTROPHILS % (AUTO) 93.6 % (42.2-75.2); PLATELET COUNT (AUTO) 186 K/uL (140-450); RED BLOOD CELL COUNT(AUTO) 3.93 MIL/uL (4.20-5.40); WHITE BLOOD COUNT (AUTO) 5.6 K/uL (4.8-10.8)
--- NOTE | 2022-10-17 02:26 | NUR ---
TELENEURO INITIATED PER DR. GONZÁLES
[2022-10-17 02:30] LABS: ALBUMIN 3.7 g/dL (3.4-5.0); ANION GAP 11.6 (8-16); ASPARTATE AMINOTRANSFERASE 31 U/L (15-37); CARBON DIOXIDE 28.1 mmol/L (21-32); CHLORIDE 105 mmol/L (98-107); CREATININE 0.8 mg/dL (0.6-1.3); GFR ARICAN-AMERICAN 99 mL/min (>90); GLUCOSE 119 mg/dL (74-106); POTASSIUM 3.7 mmol/L (3.5-5.1); SODIUM SERUM 141 mmol/L (136-145); TOTAL BILIRUBIN 0.3 mg/dL (0.0-1.0); UREA NITROGEN, BLOOD 5 mg/dL (7-18)
[2022-10-17 02:34] LABS: PROTHROMBIN TIME 11.1 secs (10.8-13.4)
--- NOTE | 2022-10-17 02:38 | NUR ---
TELENEURO DOCTOR SPEAKING WITH PATIENT VIA REMOTE COMMUNICATION
--- NOTE | 2022-10-17 02:42 | NUR ---
DR. MIGNON WILKERSON, SPEAKING WITH DR. GONZÁLES
[2022-10-17] MEDS ORDERED: METOCLOPRAMIDE 10 MG/2 ML INJ VIAL IVP ONE (02:55)
[2022-10-17] MEDS ORDERED: methylPREDNISolone SS 125 MG/2 ML VIAL IVP ONE (02:55)
[2022-10-17] MEDS ORDERED: KETOROLAC 15 MG/ML VIAL IVP ONE (02:55)
[2022-10-17] MEDS ORDERED: diphenhydrAMINE 50 MG/ML VIAL IVP ONE ×2 (02:55→03:20)
[2022-10-17 04:00] VITALS: BP 101/69; PULSE 65; RESP 18; TEMP 98.9; O2SAT 100
--- NOTE | 2022-10-17 04:00 | NUR ---
Patient eloped with IV line, Dr. Gonsales made aware.
--- NOTE | 2022-10-17 04:10 | NUR ---
Kristopher GREER called patient chivo.
--- NOTE | 2022-10-17 04:20 | NUR ---
Pt bed cleaned and IV line noted on bed.
--- NOTE | 2022-10-17 04:30 | NUR ---
Officer Davie from [place] [employer] called who stated that they were unable to locate patient at this time.
== END 2022-10-17 04:00 | disposition left against medical advice (07) ==
LOC: MED 01:05
DX: R53.1 Weakness (principal); Z79.899 Other long term (current) drug therapy; Z86.73 Personal history of transient ischemic attack (TIA), and cerebral infarction without residual deficits
CPT/HCPCS: 36415; 70450; 70496; 71045; 80053; 84484; 85025; 85610; 85730; 86886; 86900; 86901; 93005; 96374; 96375; 99291; J1200; J1885; J2765; J2930; 99285

== ENCOUNTER 2022-11-12 10:21 | Inpatient (IN) | payer OTHER ==
[~2022-11-12] VITALS: Ht 160 cm; Wt 54.0 kg
[2022-11-12 10:25] VITALS: BP 111/51; PULSE 71; RESP 20; TEMP 97.6; O2SAT 98
[2022-11-12] MEDS ORDERED: NACL 0.9% 1,000 ML IV ONE ×3 (10:30→19:00)
[2022-11-12] MEDS ORDERED: MORPHINE SULFATE 4 MG/ML SYR IVP ONE (10:30)
[2022-11-12] MEDS ORDERED: ONDANSETRON 4 MG/2 ML VIAL IVP ONE (10:30)
--- NOTE | 2022-11-12 10:32 | NUR ---
CODE STROKE ACTIVATED.
--- NOTE | 2022-11-12 10:35 | NUR ---
PT TAKEN TO CT WITH NURSE WITH TECH
--- NOTE | 2022-11-12 10:43 | NUR ---
PT AMBULATED FROM HOME C/O LEFT SIDED WEAKNESS AND LOSS OF SENSATION ON THE LEFT SIDE, LEFT ARM NO EFFORT AGAINST GRAVITY, SLIGHT DRIFT NOTED ON THE LEFT LEG, PT IS ABLE TO AMBULATE WITH DIFFICULTY. PT A/OX4, GCS 15, VERBALLY RESPONSIVE. HX: LUPUS NKA
--- NOTE | 2022-11-12 10:44 | NUR ---
ATTEMPTED MULTIPLE ATTEMPTS WITH IV, NO SUCCESS
--- NOTE | 2022-11-12 10:45 | NUR ---
XRAY AT BEDSIDE
[2022-11-12 11:26] LABS: BASOPHILS # (AUTO) 0.1 K/uL (0.00-0.22); BASOPHILS % (AUTO) 1.5 % (0.0-2.0); EOSINOPHILS % (AUTO) 0.9 % (0.0-4.0); HEMATOCRIT 38.2 % (36-48); HEMOGLOBIN 12.3 g/dL (12.0-16.0); LYMPHOCYTES # (AUTO) 0.9 K/uL (2.5-16.5); LYMPHOCYTES % (AUTO) 18.5 % (20.5-51.1); MEAN CORPUSCULAR HEMOGLOBIN 30 pg (27-31); MEAN CORPUSCULAR HGB CONC 32 g/dL (33-37); MEAN CORPUSCULAR VOLUME 92.8 fL (80-94); MONOCYTES # (AUTO) 0.4 K/uL (0.8-1.0); MONOCYTES % (AUTO) 8.2 % (1.7-9.3); NEUTROPHILS # (AUTO) 3.4 K/uL (1.8-7.7); NEUTROPHILS % (AUTO) 70.9 % (42.2-75.2); PLATELET COUNT (AUTO) 197 K/uL (140-450); RED BLOOD CELL COUNT(AUTO) 4.12 MIL/uL (4.20-5.40); RED CELL DISTRIBUTION WIDTH 15.6 % (11.6-13.7); WHITE BLOOD COUNT (AUTO) 4.8 K/uL (4.8-10.8)
[2022-11-12 11:46] LABS: ALBUMIN 3.9 g/dL (3.4-5.0); ANION GAP 10.8 (8-16); ASPARTATE AMINOTRANSFERASE 31 U/L (15-37); CARBON DIOXIDE 25.6 mmol/L (21-32); CHLORIDE 107 mmol/L (98-107); CREATININE 0.6 mg/dL (0.6-1.3); GFR ARICAN-AMERICAN 138 mL/min (>90); GLUCOSE 85 mg/dL (74-106); POTASSIUM 4.4 mmol/L (3.5-5.1); SODIUM SERUM 139 mmol/L (136-145); TOTAL BILIRUBIN 0.3 mg/dL (0.0-1.0); UREA NITROGEN, BLOOD 3 mg/dL (7-18)
--- NOTE | 2022-11-12 11:47 | NUR ---
PAIN MEDS GIVEN ORDERED
[2022-11-12 12:08] LABS: PROTHROMBIN TIME 10.7 secs (10.8-13.4)
[2022-11-12 12:29] LABS: APPEARANCE,URINE CLEAR (CLEAR); BILIRUBIN,URINE NEGATIVE (NEGATIVE); BLOOD, URINE NEGATIVE (NEGATIVE); COLOR,URINE YELLOW (YELLOW); LEUKOCYTE ESTERASE ,URINE NEGATIVE (NEGATIVE); NITRITE, URINE NEGATIVE (NEGATIVE); PH,URINE 7.5 (5.0-9.0); UGLUCOSE NEGATIVE (NEGATIVE)
[2022-11-12] MEDS ORDERED: diphenhydrAMINE 50 MG/ML VIAL IVP ONE ×2 (13:05→15:00)
[2022-11-12] MEDS ORDERED: KETOROLAC 30 MG/ML VIAL IVP ONE ×2 (13:05→15:00)
[2022-11-12] MEDS ORDERED: METOCLOPRAMIDE 10 MG/2 ML INJ VIAL IVP ONE ×2 (13:05→15:00)
--- NOTE | 2022-11-12 15:06 | NUR ---
PT MEDICATED PER DOCTORS ORDERS
[2022-11-12] MEDS ORDERED: METH4TAB28 PO (18:54)
[2022-11-12] MEDS ORDERED: PRED50TA3 PO (18:54)
[2022-11-12] MEDS ORDERED: MEX2.5 (18:55)
--- NOTE | 2022-11-12 20:29 | NUR ---
Patient will be admitted to care of Shani DAY. Admited to Telemetry. Will go to room 105B. Belongings list completed. Report to Leonidas GARCIA.
[2022-11-12 20:40] VITALS: BP 116/55; PULSE 61; RESP 18; TEMP 97.6; O2SAT 97; O2SAT 99
--- NOTE | 2022-11-12 20:40 | NUR ---
PT TRANSPORTED VIA GURNEY FROM ER. PT IS AAOX4. SPEECH CLEAR. PT CAME IN WITH LEFT SIDED WEAKNESS AFTER EXPERIENCING MIGRAINES. PT STATE LAST TIME THIS HAPPEN WAS A YEAR AGO. PT HAS VISIBLE LEFT SIDED WEAKNESS ON LEFT ARM AND LEFT LOWER EXTREMITY. NO FACIAL DROOP. PT HAS IV ON RIGHT AC 20 GAUGE SALINE LOCK. EDUCATED PT DRAWER FITTER LIGHT SYSTEM. POC DISCUSSED. WILL CONTINUE TO MONITOR THE PT.
[2022-11-12 21:01] VITALS: PULSE 57
[2022-11-12] MEDS ORDERED: METOCLOPRAMIDE 10 MG/2 ML INJ VIAL IVP SCH (21:50)
[2022-11-12] MEDS ORDERED: KETOROLAC 30 MG/ML VIAL IVP SCH (21:50)
[2022-11-12] MEDS ORDERED: diphenhydrAMINE 50 MG/ML VIAL IVP SCH (21:50)
[2022-11-12] MEDS: GABAPENTIN 100 MG CAP PO PRN (22:24)
[2022-11-12] MEDS: HYDROcodone/APAP 5/325 MG 1 TAB TAB PO PRN (22:24)
[2022-11-13] VITALS: BP 101/59; PULSE 85; PULSE 88; RESP 18; TEMP 97.6; O2SAT 99
--- NOTE | 2022-11-13 02:15 | NUR ---
OBSERVED PT. PT IS RESTING ON BED. PT IS AWAKE NOT IN ANY DISTRESS. PT IS OKAY AND DOES NOT NEED ANYTHING AT THIS TIME. WILL CONTINUE TO MONITOR THE PT.
[2022-11-13 04:00] VITALS: BP 111/75; PULSE 67; PULSE 74; RESP 16; TEMP 97.8; O2SAT 98
[2022-11-13] MEDS: HYDROcodone/APAP 5/325 MG 1 TAB TAB PO PRN ×3 (04:24→18:02)
[2022-11-13] MEDS: GABAPENTIN 100 MG CAP PO PRN (06:30)
--- NOTE | 2022-11-13 07:17 | NUR ---
ENDORSED PT TO DAY SHIFT RN FOR CONTINUITY OF CARE. PT IS STABLE.
--- NOTE | 2022-11-13 07:41 | NUR ---
GOT REPORT FROM THE NIGHT NURSE, PT ASKING FOR MAGRAIN MED,NO SOB.[id number]
[2022-11-13 08:00] VITALS: BP 114/75; PULSE 72; PULSE 75; RESP 18; TEMP 98.2; O2SAT 100; O2SAT 99
[2022-11-13] MEDS ORDERED: METOCLOPRAMIDE 10 MG/2 ML INJ VIAL IVP PRN ×2 (08:10→15:00)
[2022-11-13] MEDS ORDERED: diphenhydrAMINE 50 MG/ML VIAL IVP SCH ×2 (08:30→15:00)
[2022-11-13] MEDS ORDERED: KETOROLAC 30 MG/ML VIAL IM SCH (08:31)
[2022-11-13] MEDS ORDERED: KETOROLAC 30 MG/ML VIAL IVP SCH ×2 (08:31→15:00)
[2022-11-13] MEDS ORDERED: GABAPENTIN 100 MG CAP PO PRN ×2 (08:59→15:00)
[2022-11-13] MEDS ORDERED: ASPIRIN 81 MG TAB.CHEW PO SCH (09:00)
[2022-11-13] MEDS ORDERED: ATORVASTATIN 80 MG TAB PO SCH (09:00)
--- NOTE | 2022-11-13 09:22 | NUR ---
BENADRYL IS GIVEN IVP ORDERED.[id number] Addendum: 11/13/22 at 1009 by Brett Butler RN IT WAS TORADOL NOT BENADRYL THAT WAS GIVEN IV
--- NOTE | 2022-11-13 09:34 | NUR ---
PATIENT HAS BEEN SCREENED AND CATEGORIZED LOW NUTRITION RISK. PATIENT WILL BE SEEN WITHIN 7 DAYS OF ADMISSION. 11/12/22-11/19/[address]
[2022-11-13 12:00] VITALS: BP 111/72; PULSE 74; PULSE 76; RESP 18; TEMP 99.3; O2SAT 98
[2022-11-13 16:00] VITALS: BP 111/70; PULSE 85; PULSE 99; RESP 18; TEMP 99.2; O2SAT 98
[2022-11-13 17:38] VITALS: BP 111/70; PULSE 99; RESP 18; TEMP 99.2
[2022-11-13] MEDS ORDERED: GABA800T6 PO (18:10)
--- NOTE | 2022-11-13 19:31 | NUR ---
pt discharged home , discharge instruction is given, id an iv removed pt left without and discomfort.[email or web address]
--- NOTE | 2022-11-14 14:06 | NUR ---
CALLED DR WYATT GARZA LOCATED AT [id number] [place] [id number]. SPOKE WITH KEITH WHO WAS ABLE TO HELP ME SCHEDULE A HOSPITAL FOLLOW UP APPOINTMENT FOR 11/29/2022 AT 0611. CALLED PATIENT WHO DIDN'T ANSWER BUT WAS ABLE TO LEAVE MESSAGE REGARDING THE ABOVE INFORMATION.
== END 2022-11-13 19:15 | disposition home or self-care (01) | DRG 54 ==
LOC: MED 10:21 → MTU 18:27 → MMU 18:27 → MTU 20:08
PROVIDERS: ADMIT Family Medicine; ATTEND Family Medicine
DX: G43.809 Other migraine, not intractable, without status migrainosus (principal); G45.9 Transient cerebral ischemic attack, unspecified; M32.9 Systemic lupus erythematosus, unspecified; M06.9 Rheumatoid arthritis, unspecified; Z79.899 Other long term (current) drug therapy
CPT/HCPCS: 36415; 70450; 71045; 80053; 81003; 81025; 84484; 85025; 85610; 85730; 86886; 86900; 86901; 87081; 93005; 96361; 96374; 96375; 96376; 99291; 99292; J1200; J1644; J1885; J2270; J2405; J2765; Q0092

== ENCOUNTER 2022-12-05 11:49 | Emergency (ER) | payer OTHER ==
[~2022-12-05] VITALS: Ht 160 cm; Wt 51.7 kg
[~2022-12-05 11:49] MED LIST changes: -GABA-640 PO; -GABA300C PO; +METH4TAB28 PO; +MEX2.5; +PRED50TA3 PO
[2022-12-05 12:10] VITALS: BP 134/76; PULSE 81; RESP 18; TEMP 98; O2SAT 91
--- NOTE | 2022-12-05 12:15 | NUR ---
Patient wheelchair assisted to bed 4.
--- NOTE | 2022-12-05 12:32 | NUR ---
Lab at bedside.
[2022-12-05 12:50] LABS: BASOPHILS # (AUTO) 0.1 K/uL (0.00-0.22); BASOPHILS % (AUTO) 1.3 % (0.0-2.0); EOSINOPHILS % (AUTO) 0.8 % (0.0-4.0); HEMATOCRIT 38.6 % (36-48); HEMOGLOBIN 12.6 g/dL (12.0-16.0); LYMPHOCYTES # (AUTO) 0.9 K/uL (2.5-16.5); LYMPHOCYTES % (AUTO) 19.8 % (20.5-51.1); MEAN CORPUSCULAR HEMOGLOBIN 30 pg (27-31); MEAN CORPUSCULAR HGB CONC 33 g/dL (33-37); MEAN CORPUSCULAR VOLUME 92.1 fL (80-94); MONOCYTES # (AUTO) 0.3 K/uL (0.8-1.0); MONOCYTES % (AUTO) 6.2 % (1.7-9.3); NEUTROPHILS # (AUTO) 3.1 K/uL (1.8-7.7); NEUTROPHILS % (AUTO) 71.9 % (42.2-75.2); PLATELET COUNT (AUTO) 172 K/uL (140-450); RED BLOOD CELL COUNT(AUTO) 4.19 MIL/uL (4.20-5.40); RED CELL DISTRIBUTION WIDTH 15.9 % (11.6-13.7); WHITE BLOOD COUNT (AUTO) 4.4 K/uL (4.8-10.8)
[2022-12-05 13:19] LABS: ALBUMIN 3.9 g/dL (3.4-5.0); ANION GAP 12.1 (8-16); ASPARTATE AMINOTRANSFERASE 40 U/L (15-37); CARBON DIOXIDE 25.3 mmol/L (21-32); CHLORIDE 106 mmol/L (98-107); CREATININE 0.7 mg/dL (0.6-1.3); GFR ARICAN-AMERICAN 116 mL/min (>90); GLUCOSE 85 mg/dL (74-106); POTASSIUM 3.4 mmol/L (3.5-5.1); SODIUM SERUM 140 mmol/L (136-145); TOTAL BILIRUBIN 0.2 mg/dL (0.0-1.0); UREA NITROGEN, BLOOD 3 mg/dL (7-18)
--- NOTE | 2022-12-05 14:02 | NUR ---
Patient was wheelchair assisted to restroom.
--- NOTE | 2022-12-05 14:22 | NUR ---
Dr. Barkley evaluating patient at bedside.
[2022-12-05] MEDS ORDERED: KETOROLAC 30 MG/ML VIAL IVP ONE (14:55)
[2022-12-05] MEDS ORDERED: NACL 0.9% 1,000 ML IV ONE (14:55)
[2022-12-05] MEDS ORDERED: diphenhydrAMINE 50 MG/ML VIAL IVP ONE (14:55)
[2022-12-05] MEDS: PROCHLORPERAZINE 10 MG/2 ML VIAL IVP ONE ×2 (15:16→15:20)
--- NOTE | 2022-12-05 16:46 | NUR ---
Patient was able to ambulate to restroom.
--- NOTE | 2022-12-05 16:51 | NUR ---
Patient refusing bolus. Patient only recieved 800 ml of the [address] Barkley made aware.
[2022-12-05] MEDS ORDERED: GABA300C PO (17:33)
--- NOTE | 2022-12-05 17:45 | NUR ---
IV removed, catheter intact and site benign. Applied folded 4x4 gauze and tape to stop bleeding.
[2022-12-05 17:47] VITALS: BP 120/67; PULSE 97; RESP 20; TEMP 97.1; O2SAT 100
--- NOTE | 2022-12-05 17:47 | NUR ---
Patient discharged with v/s stable. Written and verbal after care instructions given. Patient alert, oriented and verbalized understanding of instructions. Ambulatory with steady gait. All questions addressed prior to discharge. ID band removed. Patient advised to follow up with PMD. Rx of Neurontin given. Opportunity to ask questions provided and answered.
== END 2022-12-05 17:47 | disposition home or self-care (01) ==
LOC: MED 11:49
DX: G43.909 Migraine, unspecified, not intractable, without status migrainosus (principal); H53.142 Visual discomfort, left eye; Z86.73 Personal history of transient ischemic attack (TIA), and cerebral infarction without residual deficits; Z79.899 Other long term (current) drug therapy
CPT/HCPCS: 36415; 70450; 71045; 80053; 84484; 85025; 96361; 96374; 96375; 99285; J0780; J1200; J1885; J7030; Q0092

== ENCOUNTER 2023-01-03 16:28 | Emergency (ER) | payer OTHER ==
[~2023-01-03] VITALS: Ht 160 cm; Wt 56.8 kg
[~2023-01-03 16:28] MED LIST changes: +GABA300C PO
[2023-01-03 17:01] VITALS: BP 118/63; RESP 20; TEMP 98; O2SAT 95
[2023-01-03] MEDS ORDERED: PROCHLORPERAZINE 10 MG/2 ML VIAL IVP ONE (17:50)
[2023-01-03] MEDS ORDERED: ACETAMINOPHEN 325 MG TAB PO ONE (17:50)
[2023-01-03] MEDS ORDERED: diphenhydrAMINE 50 MG/ML VIAL IVP ONE (17:50)
[2023-01-03] MEDS ORDERED: NACL 0.9% 1,000 ML IV ONE (17:50)
[2023-01-03] MEDS ORDERED: KETOROLAC 30 MG/ML VIAL IVP ONE (17:50)
[2023-01-03 18:07] VITALS: TEMP 98
[2023-01-03 18:12] LABS: BASOPHILS # (AUTO) 0.1 K/uL (0.00-0.22); BASOPHILS % (AUTO) 1.3 % (0.0-2.0); EOSINOPHILS # (AUTO) 0.2 K/uL (0-0.4); HEMATOCRIT 37.9 % (36-48); HEMOGLOBIN 12.2 g/dL (12.0-16.0); LYMPHOCYTES # (AUTO) 1.8 K/uL (2.5-16.5); LYMPHOCYTES % (AUTO) 33.2 % (20.5-51.1); MEAN CORPUSCULAR HEMOGLOBIN 30 pg (27-31); MEAN CORPUSCULAR HGB CONC 32 g/dL (33-37); MEAN CORPUSCULAR VOLUME 91.9 fL (80-94); MONOCYTES # (AUTO) 0.6 K/uL (0.8-1.0); MONOCYTES % (AUTO) 11.4 % (1.7-9.3); NEUTROPHILS # (AUTO) 2.8 K/uL (1.8-7.7); NEUTROPHILS % (AUTO) 50.1 % (42.2-75.2); PLATELET COUNT (AUTO) 236 K/uL (140-450); RED BLOOD CELL COUNT(AUTO) 4.12 MIL/uL (4.20-5.40); RED CELL DISTRIBUTION WIDTH 15.8 % (11.6-13.7); WHITE BLOOD COUNT (AUTO) 5.5 K/uL (4.8-10.8)
[2023-01-03 18:24] LABS: APPEARANCE,URINE CLEAR (CLEAR); BILIRUBIN,URINE NEGATIVE (NEGATIVE); BLOOD, URINE NEGATIVE (NEGATIVE); COLOR,URINE YELLOW (YELLOW); LEUKOCYTE ESTERASE ,URINE NEGATIVE (NEGATIVE); NITRITE, URINE NEGATIVE (NEGATIVE); PH,URINE 7.5 (5.0-9.0); PROTEIN,URINE NEGATIVE (NEGATIVE); UGLUCOSE NEGATIVE (NEGATIVE); UROBILINOGEN,URINE 0.2 EU/dL (0.2 - 1)
[2023-01-03 18:34] LABS: ALANINE AMINOTRANSFERASE 19 U/L (12-78); ALBUMIN 3.9 g/dL (3.4-5.0); ALKALINE PHOSPHATASE 48 U/L (50-136); ANION GAP 10.1 (8-16); ASPARTATE AMINOTRANSFERASE 26 U/L (15-37); CALCIUM 8.9 mg/dL (8.5-10.1); CARBON DIOXIDE 29.2 mmol/L (21-32); CHLORIDE 102 mmol/L (98-107); CREATININE 0.7 mg/dL (0.6-1.3); GFR ARICAN-AMERICAN 116 mL/min (>90); GFR NON ARICAN-AMERICAN 96 mL/min (>90); GLUCOSE 100 mg/dL (74-106); POTASSIUM 4.3 mmol/L (3.5-5.1); SODIUM SERUM 137 mmol/L (136-145); TOTAL BILIRUBIN 0.1 mg/dL (0.0-1.0); TOTAL PROTEIN, SERUM 7.5 g/dL (6.4-8.2); UREA NITROGEN, BLOOD 11 mg/dL (7-18)
[2023-01-03] MEDS ORDERED: GABA400C PO ×2 (19:40→19:42)
[2023-01-03 20:15] VITALS: BP 111/66; PULSE 112; RESP 16; O2SAT 96
== END 2023-01-03 20:15 | disposition home or self-care (01) ==
LOC: MED 16:28
DX: G43.909 Migraine, unspecified, not intractable, without status migrainosus (principal); R53.1 Weakness; Z79.899 Other long term (current) drug therapy
CPT/HCPCS: 36415; 80053; 81003; 81025; 84484; 85025; 93005; 96361; 96374; 96375; 99284; J0780; J1200; J1885; J7030

== ENCOUNTER 2023-02-27 08:53 | Emergency (ER) | payer OTHER ==
[~2023-02-27] VITALS: Ht 160 cm; Wt 64.9 kg
[2023-02-27 09:03] VITALS: BP 104/72; PULSE 82; RESP 16; TEMP 97.3; O2SAT 100
[2023-02-27] MEDS ORDERED: MORPHINE SULFATE 2 MG/ML SYR IVP STA (09:12)
[2023-02-27] MEDS ORDERED: PROCHLORPERAZINE 10 MG/2 ML VIAL IVP ONE (09:15)
[2023-02-27] MEDS ORDERED: ACETAMINOPHEN EXTRA STRENGTH 500 MG TAB PO ONE (09:15)
[2023-02-27] MEDS ORDERED: diphenhydrAMINE 50 MG/ML VIAL IVP ONE ×2 (09:15→11:10)
[2023-02-27 10:03] LABS: BASOPHILS # (AUTO) 0.1 K/uL (0.00-0.22); BASOPHILS % (AUTO) 1.6 % (0.0-2.0); EOSINOPHILS # (AUTO) 0.1 K/uL (0-0.4); HEMATOCRIT 35.1 % (36-48); HEMOGLOBIN 11.2 g/dL (12.0-16.0); LYMPHOCYTES # (AUTO) 1.8 K/uL (2.5-16.5); LYMPHOCYTES % (AUTO) 29.3 % (20.5-51.1); MEAN CORPUSCULAR HEMOGLOBIN 30 pg (27-31); MEAN CORPUSCULAR HGB CONC 32 g/dL (33-37); MEAN CORPUSCULAR VOLUME 95.2 fL (80-94); MONOCYTES # (AUTO) 0.8 K/uL (0.8-1.0); MONOCYTES % (AUTO) 12.4 % (1.7-9.3); NEUTROPHILS # (AUTO) 3.3 K/uL (1.8-7.7); NEUTROPHILS % (AUTO) 54.7 % (42.2-75.2); PLATELET COUNT (AUTO) 341 K/uL (140-450); RED BLOOD CELL COUNT(AUTO) 3.69 MIL/uL (4.20-5.40); WHITE BLOOD COUNT (AUTO) 6.1 K/uL (4.8-10.8)
[2023-02-27 10:11] LABS: APPEARANCE,URINE CLEAR (CLEAR); BILIRUBIN,URINE NEGATIVE (NEGATIVE); BLOOD, URINE NEGATIVE (NEGATIVE); COLOR,URINE YELLOW (YELLOW); LEUKOCYTE ESTERASE ,URINE TRACE (NEGATIVE); NITRITE, URINE NEGATIVE (NEGATIVE); PROTEIN,URINE NEGATIVE (NEGATIVE); UGLUCOSE NEGATIVE (NEGATIVE); UROBILINOGEN,URINE 0.2 EU/dL (0.2 - 1)
[2023-02-27 10:25] LABS: INR 0.9 (0.8-1.2); PARTIAL THROMBOPLASTIN TIME 21.6 secs (22-35.6); PROTHROMBIN TIME 9.5 secs (10.8-13.4)
[2023-02-27 10:38] LABS: ALANINE AMINOTRANSFERASE 72 U/L (12-78); ALBUMIN 3.1 g/dL (3.4-5.0); ALKALINE PHOSPHATASE 47 U/L (50-136); ANION GAP 8.7 (8-16); ASPARTATE AMINOTRANSFERASE 37 U/L (15-37); CARBON DIOXIDE 29.4 mmol/L (21-32); CHLORIDE 105 mmol/L (98-107); CREATININE 0.7 mg/dL (0.6-1.3); GFR ARICAN-AMERICAN 115 mL/min (>90); GFR NON ARICAN-AMERICAN 95 mL/min (>90); GLUCOSE 83 mg/dL (74-106); POTASSIUM 4.1 mmol/L (3.5-5.1); SODIUM SERUM 139 mmol/L (136-145); TOTAL BILIRUBIN 0.2 mg/dL (0.0-1.0); TOTAL PROTEIN, SERUM 6.6 g/dL (6.4-8.2); UREA NITROGEN, BLOOD 15 mg/dL (7-18)
[2023-02-27 10:38] LABS: BACTERIA,URINE OCCASSIONAL /HPF (None Seen); RBC,URINE 0-5 /HPF (0-5); SQUAMOUS EPITHELIAL CELL,UR 0-3 (FEW) /LPF (0-3 (FEW)); WBC,URINE 0-5 /HPF (0-5)
[2023-02-27] MEDS ORDERED: KETOROLAC 30 MG/ML VIAL IVP ONE (11:50)
[2023-02-27 11:55] VITALS: O2SAT 100
[2023-02-27] MEDS ORDERED: NACL 0.9% 1,000 ML IV ONE (11:55)
[2023-02-27] MEDS ORDERED: HYDR25CA10 PO ×2 (13:02→13:14)
[2023-02-27] MEDS ORDERED: PROC-87 PO ×2 (13:02→13:14)
[2023-02-27] MEDS ORDERED: ACET-10509 PO ×2 (13:02→13:14)
[2023-02-27] MEDS ORDERED: GABA300C PO (13:14)
[2023-02-27 13:26] VITALS: BP 135/88; PULSE 70; RESP 16; TEMP 98; O2SAT 100
== END 2023-02-27 13:26 | disposition home or self-care (01) ==
LOC: MED 08:53
DX: G43.909 Migraine, unspecified, not intractable, without status migrainosus (principal); R53.1 Weakness; Z79.899 Other long term (current) drug therapy; Z91.018 Allergy to other foods
CPT/HCPCS: 36415; 70450; 71045; 80053; 81001; 81025; 82948; 83735; 84484; 85025; 85610; 85730; 86886; 86900; 86901; 93005; 96361; 96374; 96375; 99285; J0780; J1200; J1885; J2270

== ENCOUNTER 2023-03-25 15:44 | Emergency (ER) | payer OTHER ==
[~2023-03-25] VITALS: Ht 160 cm; Wt 60.3 kg
[~2023-03-25 15:44] MED LIST changes: +ACET-10509 PO; +HYDR25CA10 PO; +PROC-87 PO
[2023-03-25 15:47] VITALS: BP 123/79; PULSE 83; RESP 16; TEMP 98; O2SAT 98
[2023-03-25] MEDS ORDERED: GABA800T6 PO (16:09)
[2023-03-25 16:59] VITALS: BP 123/79; PULSE 83; RESP 16; TEMP 98; O2SAT 98
== END 2023-03-25 16:59 | disposition home or self-care (01) ==
LOC: MED 15:44
DX: M25.561 Pain in right knee (principal); Z76.0 Encounter for issue of repeat prescription; Z86.73 Personal history of transient ischemic attack (TIA), and cerebral infarction without residual deficits; Z79.899 Other long term (current) drug therapy
CPT/HCPCS: 99281

== ENCOUNTER 2023-04-21 07:43 | Emergency (ER) | payer OTHER ==
[~2023-04-21] VITALS: Ht 160 cm; Wt 61.2 kg
[2023-04-21 08:05] VITALS: BP 138/82; PULSE 83; RESP 18; TEMP 98; O2SAT 98
[2023-04-21] MEDS ORDERED: diphenhydrAMINE 50 MG/ML VIAL IM ONE (08:25)
[2023-04-21] MEDS ORDERED: KETOROLAC 30 MG/ML VIAL IM ONE (08:25)
[2023-04-21] MEDS ORDERED: PROCHLORPERAZINE 10 MG/2 ML VIAL IM ONE (08:25)
[2023-04-21] MEDS ORDERED: PROC-87 PO ×2 (10:34→11:27)
[2023-04-21] MEDS ORDERED: GABA100C PO ×2 (10:34→11:27)
[2023-04-21] MEDS ORDERED: ACET-8905 PO ×2 (10:34→11:27)
[2023-04-21 10:40] VITALS: BP 134/79; PULSE 80; RESP 16; TEMP 97.9; O2SAT 97
[2023-04-22] MEDS ORDERED: GABA100C PO (09:14)
== END 2023-04-21 10:40 | disposition home or self-care (01) ==
LOC: MED 07:43
DX: G43.909 Migraine, unspecified, not intractable, without status migrainosus (principal); M06.9 Rheumatoid arthritis, unspecified; Z86.73 Personal history of transient ischemic attack (TIA), and cerebral infarction without residual deficits; Z98.890 Other specified postprocedural states; Z79.899 Other long term (current) drug therapy; Z91.018 Allergy to other foods
CPT/HCPCS: 96372; 99284; J0780; J1200; J1885

== ENCOUNTER 2023-05-12 08:08 | Emergency (ER) | payer OTHER ==
[~2023-05-12] VITALS: Ht 160 cm; Wt 62.6 kg
[~2023-05-12 08:08] MED LIST changes: +GABA100C PO
[2023-05-12 08:20] VITALS: BP 119/75; PULSE 83; RESP 15; TEMP 97.2; O2SAT 100
[2023-05-12] MEDS ORDERED: METOCLOPRAMIDE 10 MG/2 ML INJ VIAL IVP ONE (08:55)
[2023-05-12] MEDS ORDERED: NACL 0.9% 1,000 ML IV ONE (08:55)
[2023-05-12] MEDS ORDERED: KETOROLAC 30 MG/ML VIAL IVP ONE (08:55)
[2023-05-12] MEDS ORDERED: diphenhydrAMINE 50 MG/ML VIAL IVP ONE (09:15)
[2023-05-12] MEDS ORDERED: MORPHINE SULFATE 4 MG/ML SYR IVP ONE (10:00)
[2023-05-12 10:37] LABS: BASOPHILS # (AUTO) 0.1 K/uL (0.00-0.22); BASOPHILS % (AUTO) 0.9 % (0.0-2.0); EOSINOPHILS # (AUTO) 0.1 K/uL (0-0.4); EOSINOPHILS % (AUTO) 1.6 % (0.0-4.0); HEMATOCRIT 34.2 % (36-48); HEMOGLOBIN 11.3 g/dL (12.0-16.0); LYMPHOCYTES # (AUTO) 1.2 K/uL (2.5-16.5); LYMPHOCYTES % (AUTO) 19.9 % (20.5-51.1); MEAN CORPUSCULAR HEMOGLOBIN 30 pg (27-31); MEAN CORPUSCULAR HGB CONC 33 g/dL (33-37); MEAN CORPUSCULAR VOLUME 90.1 fL (80-94); MONOCYTES # (AUTO) 0.4 K/uL (0.8-1.0); MONOCYTES % (AUTO) 7.4 % (1.7-9.3); NEUTROPHILS # (AUTO) 4.2 K/uL (1.8-7.7); NEUTROPHILS % (AUTO) 70.2 % (42.2-75.2); PLATELET COUNT (AUTO) 209 K/uL (140-450); RED CELL DISTRIBUTION WIDTH 17.4 % (11.6-13.7); WHITE BLOOD COUNT (AUTO) 5.9 K/uL (4.8-10.8)
[2023-05-12 10:58] LABS: ANION GAP 12.9 (8-16); CALCIUM 9.5 mg/dL (8.5-10.1); CARBON DIOXIDE 25.1 mmol/L (21-32); CREATININE 0.8 mg/dL (0.6-1.3); INR 0.99 (0.8-1.2); PROTHROMBIN TIME 10.4 secs (10.8-13.4)
[2023-05-12] MEDS ORDERED: GABA400C PO (12:26)
[2023-05-12 12:47] VITALS: BP 102/49; PULSE 84; RESP 20; TEMP 97.2; O2SAT 98
== END 2023-05-12 12:42 | disposition home or self-care (01) ==
LOC: MED 08:08
DX: G43.909 Migraine, unspecified, not intractable, without status migrainosus (principal); M62.81 Muscle weakness (generalized); Z86.73 Personal history of transient ischemic attack (TIA), and cerebral infarction without residual deficits; Z91.018 Allergy to other foods; Z79.899 Other long term (current) drug therapy
CPT/HCPCS: 36415; 70450; 71045; 80048; 82948; 85025; 85610; 85730; 93005; 96361; 96374; 96375; 99285; J1200; J1885; J2270; J2765; J7030

== ENCOUNTER 2023-06-10 09:16 | Emergency (ER) | payer OTHER ==
[~2023-06-10] VITALS: Ht 160 cm; Wt 61.2 kg
[2023-06-10 09:18] VITALS: BP 117/87; PULSE 76; RESP 17; TEMP 97.1; O2SAT 100
[2023-06-10 09:46] VITALS: BP 113/67; PULSE 75; RESP 13; TEMP 98.1; O2SAT 100
[2023-06-10] MEDS ORDERED: METOCLOPRAMIDE 10 MG/2 ML INJ VIAL IM ONE (09:50)
[2023-06-10] MEDS ORDERED: KETOROLAC 30 MG/ML VIAL IM ONE (09:50)
[2023-06-10] MEDS ORDERED: diphenhydrAMINE 50 MG/ML VIAL IM ONE (09:50)
== END 2023-06-10 10:59 | disposition home or self-care (01) ==
LOC: MED 09:16
DX: G43.109 Migraine with aura, not intractable, without status migrainosus (principal); Z76.5 Malingerer [conscious simulation]; Z86.69 Personal history of other diseases of the nervous system and sense organs; Z79.899 Other long term (current) drug therapy; Z91.018 Allergy to other foods
CPT/HCPCS: 96372; 99284; J1200; J1885; J2765

== ENCOUNTER 2023-08-21 10:48 | Emergency (ER) | payer OTHER ==
[~2023-08-21] VITALS: Ht 160 cm; Wt 64.0 kg
[2023-08-21 11:21] VITALS: BP 111/68; PULSE 69; RESP 18; TEMP 97.7; O2SAT 99
[2023-08-21] MEDS: NACL 0.9% 1,000 ML IV ONE (12:44)
[2023-08-21] MEDS: diphenhydrAMINE 50 MG/ML VIAL IVP ONE (12:49)
[2023-08-21] MEDS: KETOROLAC 30 MG/ML VIAL IVP ONE (12:51)
[2023-08-21] MEDS: MORPHINE SULFATE 4 MG/ML SYR IVP ONE (12:52)
[2023-08-21] MEDS: METOCLOPRAMIDE 10 MG/2 ML INJ VIAL IVP ONE (12:52)
[2023-08-21] MEDS ORDERED: GABA300C PO ×2 (13:15→13:21)
[2023-08-21 13:27] VITALS: BP 111/68; PULSE 69; RESP 18; TEMP 97.7; O2SAT 99
== END 2023-08-21 13:25 | disposition home or self-care (01) ==
LOC: MED 10:48
DX: G43.909 Migraine, unspecified, not intractable, without status migrainosus (principal); Z91.018 Allergy to other foods; Z79.899 Other long term (current) drug therapy
CPT/HCPCS: 82948; 96361; 96374; 96375; 99284; J1200; J1885; J2270; J2765; J7030

== ENCOUNTER 2023-12-09 11:42 | Emergency (ER) | payer OTHER ==
[~2023-12-09] VITALS: Ht 167.6 cm; Wt 63.5 kg
[2023-12-09 12:31] VITALS: BP 124/77; PULSE 69; RESP 13; TEMP 98; O2SAT 97
[2023-12-09] MEDS: METOCLOPRAMIDE 10 MG/2 ML INJ VIAL IM ONE (12:50)
[2023-12-09 13:22] LABS: ANION GAP 13.3 (8-16); CALCIUM 8.9 mg/dL (8.5-10.1); CARBON DIOXIDE 24.7 mmol/L (21-32); CREATININE 0.7 mg/dL (0.6-1.3)
[2023-12-09] MEDS: ONDANSETRON 4 MG ODT PO ONE (13:36)
[2023-12-09] MEDS: KETOROLAC 60 MG/2 ML VIAL IM ONE (13:37)
[2023-12-09] MEDS: diphenhydrAMINE 50 MG/ML VIAL IM ONE (13:37)
[2023-12-09 13:39] LABS: BASOPHILS # (AUTO) 0.1 K/uL (0.00-0.22); BASOPHILS % (AUTO) 1.2 % (0.0-2.0); EOSINOPHILS # (AUTO) 0.1 K/uL (0-0.4); HEMATOCRIT 37.6 % (36-48); HEMOGLOBIN 11.9 g/dL (12.0-16.0); LYMPHOCYTES # (AUTO) 1.1 K/uL (2.5-16.5); LYMPHOCYTES % (AUTO) 20.2 % (20.5-51.1); MEAN CORPUSCULAR HEMOGLOBIN 29 pg (27-31); MEAN CORPUSCULAR HGB CONC 32 g/dL (33-37); MONOCYTES # (AUTO) 0.4 K/uL (0.8-1.0); MONOCYTES % (AUTO) 6.9 % (1.7-9.3); NEUTROPHILS # (AUTO) 3.8 K/uL (1.8-7.7); NEUTROPHILS % (AUTO) 70.7 % (42.2-75.2); PLATELET COUNT (AUTO) 161 K/uL (140-450); RED BLOOD CELL COUNT(AUTO) 4.13 MIL/uL (4.20-5.40); RED CELL DISTRIBUTION WIDTH 15.5 % (11.6-13.7); WHITE BLOOD COUNT (AUTO) 5.4 K/uL (4.8-10.8)
[2023-12-09] MEDS: MORPHINE SULFATE 4 MG/ML SYR IM ONE (13:45)
[2023-12-09] MEDS ORDERED: GABA400C PO (14:06)
[2023-12-09 14:17] LABS: ALANINE AMINOTRANSFERASE 29 U/L (12-78); ALBUMIN 3.7 g/dL (3.4-5.0); ALKALINE PHOSPHATASE 51 U/L (50-136); ASPARTATE AMINOTRANSFERASE 33 U/L (15-37); TOTAL BILIRUBIN 0.2 mg/dL (0.0-1.0); TOTAL PROTEIN, SERUM 7.2 g/dL (6.4-8.2)
[2023-12-09 14:40] VITALS: BP 124/77; RESP 13; TEMP 98
[2023-12-09 14:43] VITALS: PULSE 68; O2SAT 100
== END 2023-12-09 14:40 | disposition home or self-care (01) ==
LOC: MED 11:42
DX: G43.909 Migraine, unspecified, not intractable, without status migrainosus (principal); R53.1 Weakness; Z86.69 Personal history of other diseases of the nervous system and sense organs; Z79.1 Long term (current) use of non-steroidal anti-inflammatories (NSAID); Z79.899 Other long term (current) drug therapy; Z88.0 Allergy status to penicillin
CPT/HCPCS: 36415; 70450; 71045; 80048; 80076; 83880; 84484; 85025; 85379; 93005; 96372; 99285; J1200; J1885; J2270; Q0162; J2765

== ENCOUNTER 2024-02-19 09:14 | Emergency (ER) | payer OTHER ==
[~2024-02-19] VITALS: Ht 160 cm; Wt 61.2 kg
[~2024-02-19 09:14] MED LIST changes: -ACET-10509 PO; +ACET500T99 PO
[2024-02-19 09:19] VITALS: BP 108/67; PULSE 62; RESP 16; TEMP 97.9
[2024-02-19] MEDS ORDERED: GABA600T11 PO (10:06)
[2024-02-19] MEDS ORDERED: ONDA8TAB87 PO (10:06)
[2024-02-19] MEDS: ONDANSETRON 4 MG ODT PO ONE (10:13)
[2024-02-19 10:14] LABS: APPEARANCE,URINE CLEAR (CLEAR); BILIRUBIN,URINE NEGATIVE (NEGATIVE); BLOOD, URINE NEGATIVE (NEGATIVE); COLOR,URINE YELLOW (YELLOW); LEUKOCYTE ESTERASE ,URINE NEGATIVE (NEGATIVE); NITRITE, URINE NEGATIVE (NEGATIVE); PROTEIN,URINE NEGATIVE (NEGATIVE); UGLUCOSE NEGATIVE (NEGATIVE); UROBILINOGEN,URINE 0.2 EU/dL (0.2 - 1)
[2024-02-19] MEDS: diphenhydrAMINE 50 MG/ML VIAL IM ONE ×2 (10:14→10:35)
[2024-02-19] MEDS ORDERED: diphenhydrAMINE 50 MG/ML VIAL IM ONE (10:15)
[2024-02-19] MEDS: KETOROLAC 60 MG/2 ML VIAL IM ONE (10:21)
== END 2024-02-19 10:38 | disposition home or self-care (01) ==
LOC: MED 09:14
DX: G43.909 Migraine, unspecified, not intractable, without status migrainosus (principal); Z86.69 Personal history of other diseases of the nervous system and sense organs; Z79.899 Other long term (current) drug therapy; Z91.018 Allergy to other foods
CPT/HCPCS: 81003; 81025; 96372; 99284; J1885; Q0162; J1200